=== PATIENT | female | born 1990 | race Caucasian/White ===

== ENCOUNTER 2016-11-04 16:47 | Emergency (ER) | payer MEDICAID ==
[~2016-11-04 16:47] MED LIST: ASPI1TAB30 PO; HYDR-3138 PO; HYDR-3240 PO; IBUP800T PO; NITR100C56 PO
[2016-11-04] MEDS ORDERED: IBUPROFEN 200 MG TABLET ONE (18:09)
== END 2016-11-04 19:31 ==
LOC: ED 16:47
DX: S80.01XA Contusion of right knee, initial encounter (principal); Z88.1 Allergy status to other antibiotic agents; X58.XXXA Exposure to other specified factors, initial encounter; Y93.89 Activity, other specified; Y99.8 Other external cause status; Y92.009 Unspecified place in unspecified non-institutional (private) residence as the place of occurrence of the external cause
CPT/HCPCS: 29505; 99283

== ENCOUNTER 2017-02-20 13:49 | Emergency (ER) | payer MEDICAID ==
[~2017-02-20] VITALS: Ht 162.6 cm; Wt 68.9 kg
[~2017-02-20 13:49] MED LIST changes: -HYDR-3138 PO; +HYDR-3237 PO; +IBUP-1223 PO; -IBUP800T PO
[2017-02-20 13:50] VITALS: BP 119/77
== END 2017-02-20 14:35 | disposition home or self-care (01) ==
LOC: ED 14:29
DX: S93.492A Sprain of other ligament of left ankle, initial encounter (principal); X50.1XXA Overexertion from prolonged static or awkward postures, initial encounter; Y93.89 Activity, other specified; Y92.410 Unspecified street and highway as the place of occurrence of the external cause; Y99.8 Other external cause status
CPT/HCPCS: 99284

== ENCOUNTER 2017-03-21 03:09 | Emergency (ER) | payer MEDICAID ==
[~2017-03-21] VITALS: Ht 162.6 cm; Wt 68.7 kg
[~2017-03-21 03:09] MED LIST changes: -ASPI1TAB30 PO; +ASPI1TAB31 PO
[2017-03-21 04:26] VITALS: BP 122/64
== END 2017-03-21 04:28 | disposition home or self-care (01) ==
LOC: ED 04:00
DX: R51 Headache (principal); K08.89 Other specified disorders of teeth and supporting structures; R22.0 Localized swelling, mass and lump, head; Z90.710 Acquired absence of both cervix and uterus; Z87.891 Personal history of nicotine dependence
CPT/HCPCS: 99283